=== PATIENT | female | born 1960 | race Caucasian/White ===

== ENCOUNTER → 2016-11-24 | Outpatient (CLI) | payer OTHER ==
[~2016-11-24] MED LIST: CITA20TA9 PO; ESTR1CRE PV; MULTTAB58 PO; OPTIRAY 320 IV PRN; OYST500T47 PO; ROPI0.25 PO; TRAM-10 PO; TYLER650 PO
--- NOTE | 2016-11-24 11:28 | DIAGNOSTIC IMAGING REPORT ---
CT OF THE ABDOMEN AND PELVIS WITH CONTRAST CLINICAL HISTORY: Chronic right lower quadrant abdominal pain. COMPARISON STUDY: Pelvic ultrasound November 20, 2015. TECHNIQUE: Following IV administration of 94 mL of Optiray-320, axial images of the abdomen and pelvis were obtained from the lung bases to the proximal femurs. Images were reviewed in the axial, sagittal, and coronal planes. IV contrast was administered without complication. Oral contrast was administered. CT DOSE: 816.16 mGycm FINDINGS: Lung bases are clear. The liver, spleen, adrenal glands, kidneys and pancreas are unremarkable. There is no peripancreatic infiltration. There is no pancreatic ductal dilatation. Slight dilatation of the common bile duct is likely due to prior cholecystectomy. There is a small 8 mm splenic artery aneurysm. The caliber and wall thickness of small and large bowel are normal. The appendix is normal. There is colonic diverticulosis without evidence for acute diverticulitis. There is no ascites. There is no lymphadenopathy. No suspicious osseous lesions are present. There are findings consistent with an L5-S1 discectomy and bilateral pedicle screw fusion. IMPRESSION: 1. No acute process within the abdomen or pelvis. Normal appendix. 2. Colonic diverticulosis without evidence for acute diverticulitis. 3. Tiny 8 mm splenic artery aneurysm. 4. Slight dilatation of the common bile duct. This is likely related to prior cholecystectomy but could be correlated with obstructive liver function tests. Electronically signed by: Jaciel Hull M.D. 11/24/2016 11:26 AM Dictated Date/Time: 11/24/2016 11:20 AM
== END | disposition home or self-care (01) ==
LOC: C.CTS 08:26
PROVIDERS: ATTEND Internal Medicine
DX: R10.9 Unspecified abdominal pain (principal); K57.30 Diverticulosis of large intestine without perforation or abscess without bleeding

== ENCOUNTER → 2017-08-06 | Outpatient (CLI) | payer OTHER ==
[~2017-08-06] MED LIST changes: -OPTIRAY 320 IV PRN
[2017-08-06 17:38] LABS: BASO % 0.5 %; BASO ABS # 0.03 K/uL (0-0.2); COMPLETE YES; EOS % 0.7 %; HEMATOCRIT 41.2 % (37-47); IG% 0.2 %; LYMPH ABS # 1.41 K/uL (1.2-3.4); MEAN CELL VOLUME 90.9 fL (80-100); MEAN PLATELET VOLUME 9.1 fL (7.4-10.4); MONO % 7.8 %; NEUT % 65.8 %; PLATELET COUNT 323 K/uL (130-400); RED BLOOD COUNT 4.53 M/uL (4.2-5.4); WHITE BLOOD COUNT 5.64 K/uL (4.8-10.8)
[2017-08-06 18:10] LABS: LYME DISEASE AB IGG NEG (NEG); LYME DISEASE AB IGM NEG (NEG)
[2017-08-06 18:15] LABS: ALT/SGPT 19 U/L (12-78); BLOOD UREA NITROGEN 16 mg/dl (7-18); BUN/CREATININE RATIO 18.3 (10-20); CARBON DIOXIDE 29 mmol/L (21-32); CHLORIDE 103 mmol/L (98-107); CREATININE 0.86 mg/dl (0.60-1.20); GLUCOSE 101 mg/dl (70-99); MAGNESIUM 2.4 mg/dl (1.8-2.4); SODIUM 137 mmol/L (136-145)
[2017-08-06 18:24] LABS: ALB/GLOB RATIO 1.2 (0.9-2); ALKALINE PHOSPHATASE 106 U/L (45-117); AST/SGOT 13 U/L (15-37); THYROID STIMULATING HORMONE 0.456 uIu/ml (0.300-4.500)
== END | disposition home or self-care (01) ==
LOC: C.LABPBG 12:12
PROVIDERS: ATTEND Internal Medicine
DX: R00.2 Palpitations (principal); I95.1 Orthostatic hypotension; R07.89 Other chest pain; R53.1 Weakness

== ENCOUNTER → 2017-08-13 | Outpatient (CLI) | payer OTHER ==
--- NOTE | 2017-08-13 08:13 | DIAGNOSTIC IMAGING REPORT ---
BRAIN WITHOUT CONTRAST HISTORY: 56 years-old Female R41.3 Memory loss, short [id number] associated dizziness and lightheadedness COMPARISON: None available TECHNIQUE: Multiplanar multisequence MRI of the brain was obtained without contrast FINDINGS: There is no restricted diffusion. The midline structures including the corpus callosum, brainstem, optic chiasm, infundibulum and pineal gland are unremarkable. The sella appears partially empty. Mild degenerative changes of the imaged cervical spine. No cerebellar tonsillar herniation. No acute intracranial hemorrhage, midline shift, abnormal extra-axial collections, hydrocephalus or intracranial mass. The major flow voids at the level of the skull base are patent. Orbits are symmetric. Mastoid air cells and paranasal sinuses are generally clear. Left ni bullosa. Scalp, calvarium and soft tissues are unremarkable. IMPRESSION: No acute intracranial abnormality. The above report was generated using voice recognition software. It may contain grammatical, syntax or spelling errors. Electronically signed by: Eliseo Baca M.D. 08/13/2017 8:11 AM Dictated Date/Time: 08/13/2017 8:06 AM
== END | disposition home or self-care (01) ==
LOC: C.MRI 07:23
PROVIDERS: ATTEND Internal Medicine
DX: R41.3 Other amnesia (principal)

== ENCOUNTER 2017-09-24 13:45 | Emergency (ER) | payer OTHER ==
[~2017-09-24] VITALS: Ht 172.7 cm; Wt 83.2 kg
[2017-09-24 14:03] VITALS: TEMP 37.3; Ht 172.7 cm; Wt 83.2 kg
[2017-09-24] MEDS ORDERED: PRMVC PV (16:12)
[2017-09-24] MEDS ORDERED: BUPR-79 PO (16:12)
[2017-09-24] MEDS ORDERED: SODIUM CHLORIDE 0.9% 1000ML 2,000 ML IV STA (16:12)
[2017-09-24 16:30] VITALS: O2SAT 99
[2017-09-24 16:57] LABS: BASO % 0.2 %; BASO ABS # 0.02 K/uL (0-0.2); EOS % 0.8 %; EOS ABS # 0.08 K/uL (0-0.5); HEMATOCRIT 38.3 % (37-47); HEMOGLOBIN 12.5 g/dL (12.0-16.0); IG# 0.03 K/uL (0.00-0.02); LYMPH % 15.7 %; LYMPH ABS # 1.65 K/uL (1.2-3.4); MEAN CELL VOLUME 89.5 fL (80-100); MEAN CORPUSCULAR HEMOGLOBIN 29.2 pg (25-34); MEAN CORPUSCULAR HGB CONC 32.6 g/dl (32-36); MEAN PLATELET VOLUME 8.7 fL (7.4-10.4); MONO % 8.4 %; MONO ABS # 0.88 K/uL (0.11-0.59); NEUT % 74.6 %; NEUT ABS # 7.83 K/uL (1.4-6.5); PLATELET COUNT 266 K/uL (130-400); RED CELL DISTRIBUTION WIDTH SD 41.9 fL (36.4-46.3); WHITE BLOOD COUNT 10.49 K/uL (4.8-10.8)
[2017-09-24 17:10] LABS: CALCIUM 8.8 mg/dl (8.5-10.1); CREATININE 0.78 mg/dl (0.60-1.20); POTASSIUM 3.8 mmol/L (3.5-5.1)
--- NOTE | 2017-09-24 17:13 | DIAGNOSTIC IMAGING REPORT ---
CHEST ONE VIEW PORTABLE CLINICAL HISTORY: Atypical chest pain COMPARISON STUDY: 09/10/2014 FINDINGS: The cardiac and mediastinal contours are normal. There is no evidence of focal pulmonary consolidation. There is no evidence of failure. No pleural effusions are visualized.[ IMPRESSION: No active disease in the chest. Electronically signed by: Jeff Duke M.D. 09/24/2017 5:12 PM Dictated Date/Time: 09/24/2017 5:12 PM
[2017-09-24] MEDS ORDERED: OFLOXACIN 0.3% OP SOLN 5 ML BTL OP STA (17:19)
[2017-09-24] MEDS ORDERED: KETOROLAC TROMETHAMINE 30 MG/ML VIAL IV STA (17:23)
[2017-09-24] MEDS ORDERED: AZITHROMYCIN 250 MG TAB PO ONE (17:30)
[2017-09-24] MEDS ORDERED: AZIT250T PO (18:12)
[2017-09-24] MEDS ORDERED: OFLO0.3D4 OT (18:13)
[2017-09-24] MEDS ORDERED: IBUP-1451 PO (18:17)
--- NOTE | 2017-09-24 18:17 | EMERGENCY ROOM VISIT NOTE ---
History Report prepared by Juan José: Sergio Nova Under the Supervision of: Dr. Rony Caballero M.D. First contact with patient: 15:46 Chief Complaint: RASH Stated Complaint: SHINGLES, EARDRUM, PNEUMONIA History of Present Illness The patient is a 57 year old female who presents to the Emergency Room with complaints of constant left ear pain beginning a few days ago. She also complains of cough, nasal congestion, nausea, and shortness of breath. The patient was seen by her PCP this morning for similar symptoms. She was found to have a "blister-like thing" in her left ear by her PCP, which eventually burst and has been draining ever since. She had a chest x-ray with her PCP as well, but has not heard the results. The patient states that her PCP was concerned that her ear pain may be related to shingles. She denies body aches, vomiting, diarrhea, or fevers. She has an appointment with ENT this week. Source of History: patient Onset: A few days ago Position: ear (left) Timing: constant Associated Symptoms: + cough, + SOB, + nausea, No fevers, No vomiting, No diarrhea Note: The patient denies body aches. She also complains of nasal congestion. Review of Systems See HPI for pertinent positives and negatives. A total of ten systems were reviewed and were otherwise negative. Past Medical & Surgical Medical Problems: (1) Cervical stenosis of spinal canal (2) Hematoma (3) Hyperlipidemia Family History No pertinent family history stated. Social History Smoking Status: Never Smoker Housing Status: lives with family Current/Historical Medications Scheduled Azithromycin (Zithromax), 250 MG PO DAILY Bupropion (Wellbutrin Sr), 150 MG PO BID Citalopram Hydrobromide (Celexa), 1.5 TAB PO DAILY Estrogens, Conjugated (Premarin), 0.5 GM PV 2XWK Multiple Vitamin (Multivitamin), 1 TAB PO HS Ofloxacin (Otic) (Floxin Otic), 5 DROPS OT BID Oyster Shell (Calcium), 1,000 MG PO DAILY Ropinirole (Requip), 2 TABS PO DAILY Scheduled PRN Acetaminophen (Tylenol Arthitis Ext Rel), 650-1,300 MG PO BID PRN for Pain Ibuprofen Tab (Motrin), 800 MG PO Q8H PRN for Pain Allergies Coded Allergies: Latex (Verified Allergy, Severe, severe red,itchy rash inmouth & down throat (see comments), 09/24/17) PT GETS SEVERE RED ITCHY RASH AND SORES IN MOUTH AND DOWN THROAT EVEN IF LATEX GLOVES TOUCH FOOD DURING PREPARATION (RESTAURANT) Adhesives (Verified Allergy, Unknown, RASH, 09/24/17) Meperidine (Verified Allergy, Unknown, PHSYCHOSIS, 09/24/17) Prochlorperazine (Verified Allergy, Unknown, "EYES ROLL BACK, STIFF NECK" , 09/24/17) Oxycodone (Verified Adverse Reaction, Unknown, RASH AND ITCHING, 09/24/17) Physical Exam Vital Signs Date Time Temp Pulse Resp B/P (MAP) Pulse Ox O2 Delivery O2 Flow Rate FiO2 09/24/17 19:01 94 16 145/86 100 Room Air 09/24/17 18:05 92 16 145/86 99 Room Air 09/24/17 16:40 92 09/24/17 16:30 99 Room Air 09/24/17 16:30 99 16 143/82 98 Room Air 09/24/17 14:03 37.3 137 18 137/77 98 Room Air Physical Exam GENERAL: Awake, alert, well-appearing, in no distress HENT: Normocephalic, atraumatic. Oropharynx with dry MM and otherwise unremarkable. Mild injection to the left TM and EAC with vesicles present within the EAC and on the TM. EYES: Normal conjunctiva. Sclera non-icteric. NECK: Supple. No nuchal rigidity. FROM. No JVD. RESPIRATORY: Clear to auscultation. CARDIAC: Regular rate, normal rhythm. Extremities warm and well perfused. Pulses equal. ABDOMEN: Soft, non-distended. No tenderness to palpation. No rebound or guarding. No masses. RECTAL: Deferred. MUSCULOSKELETAL: Chest examination reveals no tenderness. The back is symmetrical on inspection without obvious abnormality. There is no CVA tenderness to palpation. No joint edema. LOWER EXTREMITIES: Calves are equal size bilaterally and non-tender. No edema. No discoloration. NEURO: Normal sensorium. No sensory or motor deficits noted. SKIN: No rash or jaundice noted. Medical Decision & Procedures ER Provider Diagnostic Interpretation: Radiology results as stated below per my review and radiologist interpretation: CHEST ONE VIEW PORTABLE FINDINGS: The cardiac and mediastinal contours are normal. There is no evidence of focal pulmonary consolidation. There is no evidence of failure. No pleural effusions are visualized.[ IMPRESSION: No active disease in the chest. Electronically signed by: Jeff Duke M.D. 09/24/2017 5:12 PM Laboratory Results 09/24/17 16:35 Red Blood Count 4.28, Mean Corpuscular Volume 89.5, Mean Corpuscular Hemoglobin 29.2, Mean Corpuscular Hemoglobin Concent 32.6, Mean Platelet Volume 8.7, Neutrophils (%) (Auto) 74.6, Lymphocytes (%) (Auto) 15.7, Monocytes (%) (Auto) 8.4, Eosinophils (%) (Auto) 0.8, Basophils (%) (Auto) 0.2, Neutrophils # (Auto) 7.83, Lymphocytes # (Auto) 1.65, Monocytes # (Auto) 0.88, Eosinophils # (Auto) 0.08, Basophils # (Auto) 0.02 09/24/17 16:35 Test 09/24/17 16:35 White Blood Count 10.49 K/uL (4.8-10.8) Red Blood Count 4.28 M/uL (4.2-5.4) Hemoglobin 12.5 g/dL (12.0-16.0) Hematocrit 38.3 % (37-47) Mean Corpuscular Volume 89.5 fL (80-100) Mean Corpuscular Hemoglobin 29.2 pg (25-34) Mean Corpuscular Hemoglobin Concent 32.6 g/dl (32-36) Platelet Count 266 K/uL (130-400) Mean Platelet Volume 8.7 fL (7.4-10.4) Neutrophils (%) (Auto) 74.6 % Lymphocytes (%) (Auto) 15.7 % Monocytes (%) (Auto) 8.4 % Eosinophils (%) (Auto) 0.8 % Basophils (%) (Auto) 0.2 % Neutrophils # (Auto) 7.83 K/uL (1.4-6.5) Lymphocytes # (Auto) 1.65 K/uL (1.2-3.4) Monocytes # (Auto) 0.88 K/uL (0.11-0.59) Eosinophils # (Auto) 0.08 K/uL (0-0.5) Basophils # (Auto) 0.02 K/uL (0-0.2) RDW Standard Deviation 41.9 fL (36.4-46.3) RDW Coefficient of Variation 13.0 % (11.5-14.5) Immature Granulocyte % (Auto) 0.3 % Immature Granulocyte # (Auto) 0.03 K/uL (0.00-0.02) Anion Gap 4.0 mmol/L (3-11) Est Creatinine Clear Calc Drug Dose 88.9 ml/min Estimated GFR () 97.1 Estimated GFR (Non- 83.8 BUN/Creatinine Ratio 15.2 (10-20) Calcium Level 8.8 mg/dl (8.5-10.1) Laboratory results reviewed by me Medications Administered Medications (Trade) Dose Ordered Sig/Jorge Route Start Time Stop Time Status Last Admin Dose Admin Sodium Chloride 2,000 ml @ 999 mls/hr Q2H1M STAT IV 09/24/17 16:12 09/24/17 18:12 DC 09/24/17 16:42 999 MLS/HR Azithromycin (Zithromax Tab) 500 mg NOW ONCE PO 09/24/17 17:30 09/24/17 17:31 DC 09/24/17 18:03 500 MG Valacyclovir HCl (Valtrex Tab) 500 mg NOW ONCE PO 09/24/17 17:30 09/24/17 17:31 DC 09/24/17 18:04 500 MG Ketorolac Tromethamine (Toradol Inj) 15 mg NOW STAT IV 09/24/17 17:23 09/24/17 17:25 DC 09/24/17 18:04 15 MG Prednisone (PredniSONE TAB) 60 mg NOW STAT PO 09/24/17 17:51 09/24/17 17:52 DC 09/24/17 18:04 60 MG Sodium Chloride ([place] Nasal Magnolia) 2 sprays NOW ONCE NA 09/24/17 18:45 09/24/17 18:46 DC 09/24/17 19:01 2 SPRAYS Valacyclovir HCl (Valtrex Tab) 500 mg NOW ONCE PO 09/24/17 19:00 09/24/17 19:01 DC 09/24/17 19:05 500 MG ECG Indication: SOB/dyspnea Rate (beats per minute): 92 Rhythm: normal sinus Findings: no acute ischemic change, other (Normal axis. ) ED Course 1551: The patient was evaluated in room C7. A complete history and physical exam was performed. 1849: I reevaluated the patient. Discussed results and discharge instructions: she verbalized understanding and agreement. The patient is ready for discharge. Medical Decision I reviewed the patient's past medical history, medications, and the nursing notes as described above. The patient's presentation and history were concerning for pneumonia, bronchitis , otitis media, otitis externa, zoster, dehydration, and electrolyte abnormalities. The patient is a 57-year-old woman who presents emergency Department with left ear pain and otorrhea after being seen by her doctor earlier today and diagnosed with zoster oticus and was given a prescription for prednisone and Valtrex however the patient began to have otorrhea when getting her outpatient chest x-ray and so was told to go to the emergency department per hpi. On arrival, the patient is uncomfortable but no acute distress, afebrile, HR 130s but vital signs otherwise stable. On exam the patient has several vesicles in the EAC as well as on the TM which could be consistent with zoster but also possibly OM/OE. Chest x-ray negative. Given the patient's productive cough in the setting of her otic symptoms will treat with oral azithromycin which will treat both bronchitis and OM. Additionally will give topical ofloxacin with earwick for possible OE in addition to the patient's current prescriptions for Valtrex and prednisone given the patient does have mild tenderness along the facial nerve distribution. She already has ENT scheduled for . Findings and plan for follow-up reviewed with patient. Patient agreeable and d/c 'd per discharge instructions. Medication Reconcilliation Current Medication List: was personally reviewed by me Blood Pressure Screening Patient's blood pressure: Elevated blood pressure Blood pressure disposition: Elevated BP felt to be situational Impression Primary Impression: Herpes zoster otitis externa Additional Impression: Acute bronchitis Scribe Attestation The scribe's documentation has been prepared under my direction and personally reviewed by me in its entirety. I confirm that the note above accurately reflects all work, treatment, procedures, and medical decision making performed by me. Departure Information Dispostion Home / Self-Care Prescriptions Ibuprofen Tab (MOTRIN) 800 Mg Tab 800 MG PO Q8H Y for Pain, #21 TAB Prov: Rony Caballero M.D. 09/24/17 Ofloxacin (Otic) (FLOXIN OTIC) 0.3 % Moses 5 DROPS OT BID for 7 Days, #1 BTL Prov: Rony Caballero M.D. 09/24/17 Azithromycin (Zithromax) 250 Mg Tab 250 MG PO DAILY, #4 TAB Prov: Rony Caballero M.D. 09/24/17 Referrals Brandon Arreaga M.D. (PCP) Patient Instructions Bronchitis Acute, ED Otitis Externa, ED Otitis Media Acute Adult, My [facility], Shingles Herpes Zoster Additional Instructions Please follow up with your primary care physician in the next 1-3 days as well as with ENT as scheduled on for re-evaluation. You likely have a bronchitis as well as an inner and external ear infection that may be related to herpes but could also be bacterial. Otherwise, your exam, chest xray, and lab results did not show signs of an emergent condition at this time. Take your prednisone and valtrex as prescribed by your doctor. Azithromycin as directed. Acetaminophen or Ibuprofen for pain and fevers as needed. Use your albuterol inhaler 2 puffs every 4 hours for the next 48 hours and then as needed thereafter. Return to the emergency department for worsening symptoms as described in the accompanying instructions. Problem Qualifiers
[2017-09-24] MEDS ORDERED: SODIUM CHLORIDE 0.65% NA SOLN 45 ML (OCEAN) ONE (18:45)
[2017-09-24 19:01] VITALS: BP 145/86; PULSE 94; O2SAT 100
== END 2017-09-24 19:05 | disposition home or self-care (01) ==
LOC: C.EDB 13:46 → C.EDC 19:05
DX: B02.8 Zoster with other complications (principal); H60.92 Unspecified otitis externa, left ear; J20.9 Acute bronchitis, unspecified; E78.5 Hyperlipidemia, unspecified; Z79.899 Other long term (current) drug therapy

== ENCOUNTER → 2017-10-29 | Outpatient (CLI) | payer OTHER ==
[~2017-10-29] MED LIST changes: +AZIT250T PO; +BUPR-79 PO; -ESTR1CRE PV; +IBUP-1451 PO; +OFLO0.3D4 OT; +PRMVC PV; -TRAM-10 PO
--- NOTE | 2017-10-29 12:21 | DIAGNOSTIC IMAGING REPORT ---
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 Following the IV administration of 8 mL of Gadavist contrast, additional enhanced images were obtained. FINDINGS: Sagittal T1, axial diffusion, proton density and T2 weighted axial, coronal FLAIR, and pre and post axial T1-weighted images were acquired. These were supplemented with post gadolinium coronal T1 weighted images. No intra or extra-axial mass lesions are visualized. Axial diffusion-weighted images reveal no evidence of acute or subacute infarction. There is no evidence of ventricular dilatation. Proton density T2-weighted and FLAIR images reveal no significant intraparenchymal signal abnormalities. There are no abnormal flow voids. There is no evidence of pathologic enhancement. No cerebellopontine angle masses are visualized. The 7th and 8th nerve complexes appear normal bilaterally. There is soft tissue and fluid within the left mastoid which demonstrates post gadolinium enhancement. This statistically is inflammatory. This was not present in July 2017. IMPRESSION: 1. Interval development of extensive signal abnormalities within the left mastoid, likely inflammatory. Clinical follow-up is advocated 2. Otherwise normal MRI of the brain Electronically signed by: Jeff Duke M.D. 10/29/2017 12:20 PM Dictated Date/Time: 10/29/2017 12:14 PM
== END | disposition home or self-care (01) ==
LOC: C.MRI 11:14
PROVIDERS: ATTEND Physician Assistant
DX: H90.72 Mixed conductive and sensorineural hearing loss, unilateral, left ear, with unrestricted hearing on the contralateral side (principal)

== ENCOUNTER 2020-03-22 12:38 | Observation (INO) ==
[2020-03-22 12:59] LABS: Basophils # (auto) 0.02 K/uL (0-0.2); Basophils % (auto) 0.3 %; Eosinophils # (auto) 0.07 K/uL (0-0.5); Eosinophils % (auto) 1.1 %; Hematocrit (blood only) 40.9 % (37-47); Hemoglobin 13.1 g/dL (12.0-16.0); Immature Granulocytes # (auto) 0.02 K/uL (0.00-0.02); Immature Granulocytes % (auto) 0.3 %; Lymphocytes # (auto) 1.64 K/uL (1.2-3.4); Lymphocytes % (auto) 24.7 %; Mean Corpuscular Hemoglobin 29.2 pg (25-34); Mean Corpuscular Volume 91.1 fL (80-100); Monocytes # (auto) 0.45 K/uL (0.11-0.59); Monocytes % (auto) 6.8 %; Neutrophils # (auto) 4.44 K/uL (1.4-6.5); Neutrophils % (auto) 66.8 %; Platelet Count 342 K/uL (130-400); RDW Coefficient of Variation 12.6 % (11.5-14.5); RDW Standard Deviation 42.2 fL (36.4-46.3); Red Blood Count 4.49 M/uL (4.2-5.4); White Blood Count 6.64 K/uL (4.8-10.8)
--- NOTE | 2020-03-22 13:04 | XRay Report ---
XR chest 1V portable CLINICAL HISTORY: Chest Pain pain COMPARISON STUDY: 03/09/2020 FINDINGS: The bones soft tissues and hemidiaphragms are normal. The cardiomediastinal silhouette is n ormal. The lungs are clear. The pulmonary vasculature is normal. IMPRESSION: Negative chest. ACT 112: Negative or not required by law. The above report was generated using voice recognition software. It may contain grammatical, syntax or spelling errors. Electronically signed by: Jonny Zepeda M.D. 03/22/2020 1:02 PM
[2020-03-22 13:13] LABS: Partial Thromboplastin Ratio 1.1; Partial Thromboplastin Time 30.1 Seconds (21.0-31.0); Prothrombin Time 10.9 Seconds (9.0-12.0)
[2020-03-22 13:16] LABS: Alanine Aminotransferase 15 U/L (12-78); Albumin Level 3.7 gm/dl (3.4-5.0); Aspartate Aminotransferase 12 U/L (15-37); Blood Urea Nitrogen 8 mg/dl (7-18); Calcium 8.9 mg/dl (8.5-10.1); Carbon Dioxide 25 mmol/L (21-32); Chloride 106 mmol/L (98-107); Creatinine Clr Calc Pharmacy 78.7 ml/min; Est GFR (African American) 86.3; Est GFR (Non-African American) 74.5; Glucose 93 mg/dl (70-99); Potassium 3.9 mmol/L (3.5-5.1); Sodium 140 mmol/L (136-145)
--- NOTE | 2020-03-22 13:17 | Emergency Department Note ---
History of Present Illness General Chief Complaint: Chest Pain Time Seen by Provider: 03/22/20 13:12 Source: patient Mode of arrival: ambulatory Limitations: no limitations History of Present Illness Provider Complaint: chest pain Maximum Pain Intensity: 5 This is a 59-year-old female who presents to the ED with a chief complaint of left-sided chest discomfort. She states that it radiates from the costochondral region just inferior and medial to her left breast and radiates under her left breast. The patient states that she had similar symptoms a couple weeks ago and it has been coming and going since that time. It seems a little worse with breathing. She states that it feels a little better if she lifts her left breast up. The patient states the pain radiates into her shoulder blade area. It started again last night and then was there this morning. Her PCP sent her in for evaluation. She has no shortness of breath. No fevers or recent illness. No nausea or vomiting. Home Medications Home Medications Medication Instructions Recorded Confirmed Type acetaminophen [Tylenol Arthritis 1,300 mg PO HS 08/12/18 03/22/20 History Pain] bupropion HCl 150 mg tablet,12 hr 150 mg PO BID #180 ea 01/14/20 03/22/20 Rx sustained-release citalopram 20 mg tablet See Rx Instructions PO QAM #135 tab 02/06/20 03/22/20 Rx clindamycin phosphate 1 appln TOP QAM 03/09/20 03/22/20 History ropinirole 0.5 mg PO HS 03/09/20 03/22/20 History Allergies Allergy/AdvReac Type Severity Reaction Status Date / Time latex Allergy Severe severe Verified 03/22/20 10:55 red,itchy rash inmouth & down throat (see comments) adhesive Allergy Unknown RASH Verified 03/22/20 10:55 meperidine Allergy Unknown PHSYCHOSIS Verified 03/22/20 10:55 prochlorperazine Allergy Unknown "EYES ROLL Verified 03/22/20 10:55 BACK, STIFF NECK" oxycodone AdvReac Unknown RASH AND Verified 03/22/20 10:55 ITCHING Past Med/Surg History Medical History Arthritis (Acute) Cervical pain (neck) Chronic back pain Chronic pain syndrome (Acute) Congenital dislocation of hip, bilateral (Acute) Cystocele, midline (Acute) DDD (degenerative disc disease), cervical (Acute) DDD (degenerative disc disease), lumbar (Acute) Degenerative disc disease Depression Fibromyalgia Hearing deficit Insomnia (Acute) Orthostatic hypotension (Acute) Osteoarthritis Pancreatitis Restless leg syndrome Right-sided headache Sensorineural hearing loss (SNHL) of both ears (Acute) Spinal stenosis Surgical History History of bilateral tubal ligation History of cholecystectomy History of colonoscopy History of dacryocystorhinostomy History of dilatation and curettage x3 History of esophagogastroduodenoscopy (EGD) History of lumbar spinal fusion hardware in place History of tonsillectomy and adenoidectomy History of tooth extraction wisdom teeth History of total abdominal hysterectomy and bilateral salpingo-oophorectomy History of umbilical hernia repair Hx of oral surgery Status post cervical spinal fusion c6-c7; hardware in place--normal ROM Family History Grandmother (Maternal) Family history of diabetes mellitus Other Family history of colonic polyps Social History Smoking Status: Never smoker Second Hand Exposure: No; Hx Alcohol Use: No Hx Substance Use: No Preferred Language: [place] Communication Ability: Effective Visual Impairment: No Limitations Hearing Ability: Normal Global Security Architect Required: No Beliefs That Will Affect Care: None marital status: Current Living Situation: Spouse Feels Safe at Home: Yes Diet Comment: Mediterranean diet reviewed. caffeine: Yes during the past year weight has: remained stable Dental Care, Regularly: Yes Physical Activity Frequency: 1-2 Times per Week Review of Systems A total of 10 systems reviewed and were otherwise negative Physical Exam Vital Signs Vital Signs - 24 hr 03/22/20 12:45 03/22/20 12:53 03/22/20 12:55 Temperature Temperature Source Pulse Rate 84 83 Pulse Rate from SpO2 Sensor 84 82 Pulse Rhythm Pulse Strength Respiratory Rate 7 L 15 Respiratory Effort / Characteristics Respiratory Depth Blood Pressure 157/87 H Blood Pressure Mean 112 Pulse Oximetry 100 100 100 Oxygen Delivery Method Room Air Room Air Sepsis Recent Fever Within 48 Hours Sepsis New/Unexplained Change in Mental Status Sepsis Action Taken by Nursing 03/22/20 12:56 03/22/20 13:00 03/22/20 13:15 Temperature 37.2 C Temperature Source Oral Pulse Rate 89 86 78 Pulse Rate from SpO2 Sensor 86 78 Pulse Rhythm Regular Pulse Strength Normal Respiratory Rate 23 14 13 Respiratory Effort / Characteristics Non-Labored Respiratory Depth Normal Blood Pressure 157/87 H 149/88 H Blood Pressure Mean 110 98 Pulse Oximetry 100 99 98 Oxygen Delivery Method Room Air Sepsis Recent Fever Within 48 Hours No Sepsis New/Unexplained Change in Mental Status No Sepsis Action Taken by Nursing No Action Required 03/22/20 13:30 Temperature Temperature Source Pulse Rate Pulse Rate from SpO2 Sensor 77 Pulse Rhythm Pulse Strength Respiratory Rate 31 H Respiratory Effort / Characteristics Respiratory Depth Blood Pressure 128/81 Blood Pressure Mean 96 Pulse Oximetry 98 Oxygen Delivery Method Sepsis Recent Fever Within 48 Hours Sepsis New/Unexplained Change in Mental Status Sepsis Action Taken by Nursing CONSTITUTIONAL/VITAL SIGNS: Reviewed / noted above. GENERAL: Non-toxic in appearance. INTEGUMENTARY: Warm, dry, and [place]. HEAD: Normocephalic. EYES: without scleral icterus or trauma. ENT/OROPHARYNX: clear and moist. LYMPHADENOPATHY/NECK: Is supple without lymphadenopathy or meningismus. RESPIRATORY: Lungs clear and equal. CARDIOVASCULAR: Regular rate and rhythm. GI/ABDOMEN: Soft and nontender. No organomegaly or pulsatile mass. No rebound or guarding. Normal bowel sounds. EXTREMITIES: Warm and well perfused. BACK: No CVA tenderness. NEUROLOGICAL: Intact without focal deficits. PSYCHIATRIC: normal affect. MUSCULOSKELETAL: Normally developed with good muscle tone. TRIAGE NURSING DOCUMENTATION REVIEWED. Medical Decision Making Differential Diagnosis The differential that was considered includes acute myocardial infarction, acute coronary syndrome, myocarditis, pericarditis, pericardial effusions /tamponade, esophageal perforation, thoracic aortic dissection, pulmonary embolism, pneumo serena, pneumothorax, pancreatitis, shingles, acute cholecystitis, perforated abdominal viscus. Medical Records Attestation: I reviewed the patient's medical records. Home Medications Current Medication List: was personally reviewed by me Laboratory Data Attestation: I reviewed the patient's lab results. Result diagrams: 03/22/20 12:13 03/22/20 12:13 Labs: Lab Results 03/22/20 03/22/20 03/22/20 Range/Units 12:13 12:13 12:13 WBC 6.64 (4.8-10.8) K/uL RBC 4.49 (4.2-5.4) M/uL Hgb 13.1 (12.0-16.0) g/dL Hct 40.9 (37-47) % MCV 91.1 (80-100) fL MCH 29.2 (25-34) pg MCHC 32.0 (32-36) g/dL RDW Std Deviation 42.2 (36.4-46.3) fL RDW Coeff of Madelaine 12.6 (11.5-14.5) % Plt Count 342 (130-400) K/uL MPV 9.0 (7.4-10.4) fL Immature Gran % (Auto) 0.3 % Neut % (Auto) 66.8 % Lymph % (Auto) 24.7 % [place] % (Auto) 6.8 % Eos % (Auto) 1.1 % Baso % (Auto) 0.3 % Neut # (Auto) 4.44 (1.4-6.5) K/uL Lymph # (Auto) 1.64 (1.2-3.4) K/uL [place] # (Auto) 0.45 (0.11-0.59) K/uL Eos # (Auto) 0.07 (0-0.5) K/uL Baso # (Auto) 0.02 (0-0.2) K/uL Immature Gran # (Auto) 0.02 (0.00-0.02) K/uL PT 10.9 (9.0-12.0) Seconds INR 1.0 (0.9-1.1) APTT 30.1 (21.0-31.0) Seconds PTT Ratio 1.1 Sodium 140 (136-145) mmol/L Potassium 3.9 (3.5-5.1) mmol/L Chloride 106 (98-107) mmol/L Carbon Dioxide 25 (21-32) mmol/L Anion Gap 8.0 (3-11) BUN 8 (7-18) mg/dl Creatinine 0.85 (0.6-1.2) mg/dl Est Cr Clr Drug Dosing 78.7 ml/min Est GFR ( Amer) 86.3 Est GFR (Non-Af Amer) 74.5 BUN/Creatinine Ratio 9.0 L (10-20) Glucose 93 (70-99) mg/dl Calcium 8.9 (8.5-10.1) mg/dl Total Bilirubin 0.3 (0.2-1) mg/dl AST 12 L (15-37) U/L ALT 15 (12-78) U/L Alkaline Phosphatase 100 (45-117) U/L Troponin I < 0.015 (0-0.045) ng/ml Total Protein 7.2 (6.4-8.2) gm/dl Albumin 3.7 (3.4-5.0) gm/dl Globulin 3.5 (2.5-4.0) gm/dl Albumin/Globulin Ratio 1.1 (0.9-2) Imaging Data Chest x-ray: Radiologist's impression: Chest x-ray: No acute disease ECG Data Attestation: I personally reviewed and interpreted this ECG as follows: Indication: chest pain Rate (beats per minute): 82 Rhythm: normal sinus Findings: no PVC and no ST elevation Blood Pressure Blood Pressure Findings: Normal blood pressure MDM Narrative The patient presents with an atypical type chest pain in the left chest. She states that it has been intermittent for couple weeks. The patient's twelve- lead EKG today shows a normal sinus rhythm at a rate of 82. CBC and chemistry panel was unremarkable. Chest x-ray did not show acute process and a troponin was negative. The patient does have some point tenderness in the area of the left costochondral joint just medial and inferior to the breast. This could be a costochondritis. The patient was told the results. She is felt to be stable for discharge. Impression & Plan Atypical chest pain, Acute costochondritis Discharge Plan Visit Data Chief Complaint: Chest Pain ED Provider: Raghu Stauffer Discharge Problem: Atypical chest pain, Acute costochondritis Patient Disposition: Home - Self-Care Condition: Good Discharge Instructions Activity Restrictions/Additional Instructions: Your test results today did not show any concerning abnormalities. Your s ymptoms could be related to costochondritis. Take ibuprofen as needed for pain. Forms Stand Alone Forms: [facility], Virtual Emergency Department, Important Visit Information Prescriptions Prescriptions: No Action bupropion HCl 150 mg tablet sustained-release 12 hr 150 mg PO BID Qty: 180 RF: 3 citalopram 20 mg tablet See Rx Instructions PO QAM Qty: 135 RF: 3 acetaminophen [Tylenol Arthritis Pain] 650 mg Tablet Extended Release 1,300 mg PO HS RF: 0 ropinirole 0.25 mg tablet 0.5 mg PO HS RF: 0 clindamycin phosphate 1 % solution 1 appln TOP QAM RF: 0 Referrals Referrals: Brandon Arreaga MD [Primary Care Provider] -
[2020-03-22 13:21] LABS: Albumin Globulin Ratio 1.1 (0.9-2); Alkaline Phosphatase 100 U/L (45-117); Bilirubin,Total 0.3 mg/dl (0.2-1); Globulin 3.5 gm/dl (2.5-4.0); Total Protein 7.2 gm/dl (6.4-8.2); Troponin I < 0.015 ng/ml (0-0.045)
--- NOTE | 2020-03-22 16:21 | History & Physical Report ---
Date of Service March 22, 2020 Assessment & Plan (1) Atypical chest pain: Chest pain atypical in nature, but with strong family history of CAD. Does not seem musculoskeletal in nature, but is possible. Could also be GI related. Chest x-ray is normal. D-dimer was negative when she had the exact same symptoms began 2 weeks ago and I do not suspect PE or DVT. -Admit on observation to telemetry for cardiac monitoring given heart palpitations -Serial troponin -Resting echocardiogram -If troponin serially negative overnight and resting echocardiogram without significant abnormality, recommend stress echocardiogram in the morning. -Daily ECG (2) Headache: Chronic daily headache for the last 3 months Does have a history of cervical spine issues -Recommend PCP follow-up as an outpatient Tylenol as needed (3) Depression: Stable -Continue home citalopram and bupropion (4) Restless legs syndrome: Stable -Continue home ropinirole (5) Orthostatic hypotension: Patient describes orthostatic symptoms and has a diagnosis of orthostatic hypotension in the chart -Given recent worsening of lightheadedness, will check orthostatic vital signs here and give 1 L normal saline (6) Hyperlipidemia: Listed as a diagnosis in the chart, but she is not on medication for this -Check fasting lipid panel in the morning Start statin if indicated (7) DVT prophylaxis: Lovenox SQ, SCDs Disposition-bring in on observation overnight for chest pain work-up History of Present Illness Chief Complaint: Chest pain Primary Care Provider: Brandon Arreaga MD This patient is a 59-year-old female with a history of anxiety/depression, fibromyalgia, RLS, hyperlipidemia, GERD, and cervical spine fusion with daily headaches for the last 3 months, who presents to the ER with 2 weeks of intermittent chest pain with heart palpitations and shortness of breath. She reports the chest pain can come on both at rest and with exertion, that it goes away on its own or with rest. She has also been having frequent heartburn which is relieved with Tums and different from her current chest pain. This chest pain feels like heaviness and is located in the left side of her chest with radiation through to the back, associated with shortness of breath, is moderate to severe in nature, also associated with heart palpitations. She is also been feeling lightheaded and an orthostatic nature with going from lying to sitting or sitting to standing but she has not passed out. She denies any recent heavy lifting or muscle soreness. She has never had a stress test before. She is very concerned as there is a history of premature CAD in her family with her brother having an PR with stents placed at age 51. Also, her father had an PR at age 76. She denies any recent fevers/chills, no loss of taste or smell, no coughing, no contact with any known people with COVID-19. She had traveled [facility] in a very remote area last week but otherwise no travel. Allergies Allergy/AdvReac Type Severity Reaction Status Date / Time latex Allergy Severe severe Verified 03/22/20 10:55 red,itchy rash inmouth & down throat (see comments) adhesive Allergy Unknown RASH Verified 03/22/20 10:55 meperidine Allergy Unknown PHSYCHOSIS Verified 03/22/20 10:55 prochlorperazine Allergy Unknown "EYES ROLL Verified 03/22/20 10:55 BACK, STIFF NECK" oxycodone AdvReac Unknown RASH AND Verified 03/22/20 10:55 ITCHING Home Medications Home Medications Medication Instructions Recorded Confirmed Type acetaminophen [Tylenol Arthritis 1,300 mg PO HS 08/12/18 03/22/20 History Pain] bupropion HCl 150 mg tablet,12 hr 150 mg PO BID #180 ea 01/14/20 03/22/20 Rx sustained-release citalopram 20 mg tablet See Rx Instructions PO QAM #135 tab 02/06/20 03/22/20 Rx clindamycin phosphate 1 appln TOP QAM 03/09/20 03/22/20 History ropinirole 0.5 mg PO HS 03/09/20 03/22/20 History Past Med/Surg History Medical History Arthritis (Acute) Cervical pain (neck) Chronic back pain Chronic pain syndrome (Acute) Congenital dislocation of hip, bilateral (Acute) Cystocele, midline (Acute) DDD (degenerative disc disease), cervical (Acute) DDD (degenerative disc disease), lumbar (Acute) Degenerative disc disease Depression Fibromyalgia Hearing deficit Insomnia (Acute) Orthostatic hypotension (Acute) Osteoarthritis Pancreatitis Restless leg syndrome Right-sided headache Sensorineural hearing loss (SNHL) of both ears (Acute) Spinal stenosis Surgical History History of bilateral tubal ligation History of cholecystectomy History of colonoscopy History of dacryocystorhinostomy History of dilatation and curettage x3 History of esophagogastroduodenoscopy (EGD) History of lumbar spinal fusion hardware in place History of tonsillectomy and adenoidectomy History of tooth extraction wisdom teeth History of total abdominal hysterectomy and bilateral salpingo-oophorectomy History of umbilical hernia repair Hx of oral surgery Status post cervical spinal fusion c6-c7; hardware in place--normal ROM Family History Grandmother (Maternal) Family history of diabetes mellitus Father Heart disease Myocardial infarction Brother Myocardial infarction, Onset Age: 51 Coronary heart disease Mother Alzheimer disease Other Family history of colonic polyps Social History Smoking Status: Never smoker Second Hand Exposure: No; Hx Alcohol Use: No Hx Substance Use: No Preferred Language: Norwegian Communication Ability: Effective Visual Impairment: No Limitations Hearing Ability: Normal Plant Attendant Or Assistant Operator Required: No Beliefs That Will Affect Care: None marital status: Current Living Situation: Spouse Feels Safe at Home: Yes Diet Comment: Mediterranean diet reviewed. caffeine: Yes during the past year weight has: remained stable Dental Care, Regularly: Yes Physical Activity Frequency: 1-2 Times per Week Review of Systems Review of Systems: All systems reviewed & are unremarkable except as noted in HPI & below No sore throat, no cough, no loss of sense of taste or smell No fevers or chills No nausea or vomiting or diarrhea, no abdominal pain, no constipation No dysuria or urinary urgency or frequency No joint pains No rashes Physical Exam Constitutional: WD/WN, vitals as above Eyes: PERRL, conjunctivae normal, anicteric sclerae ENMT: external ear and nose normal, oropharynx normal Neck: trachea midline, no thyromegaly Respiratory: normal respiratory effort, lungs clear to auscultation Cardiovascular: RRR, no murmur, no edema No tenderness to palpation over costochondral junction Chest (Breasts): Chest: normal inspection of chest Gastrointestinal (Abdomen): normal bowel sounds, soft, nontender, no hepatosplenomegaly Musculoskeletal: Extremities: extremities normal to inspection; no cyanosis and no clubbing Skin: no rashes, warm and dry Neurologic: moves all extremities and awake; no focal motor deficits Psychiatric: A+Ox3, euthymic affect Lymphatic: no lymphedema Results & Data Results & Data ([facility]) Vital Signs (Past 12 Hours) Vital Signs Temp Pulse Resp BP Pulse Ox 03/22/20 15:28 87 16 137/84 100 03/22/20 14:15 29 H 98 03/22/20 14:06 34 H 03/22/20 13:45 25 H 96 03/22/20 13:30 31 H 128/81 98 03/22/20 13:15 78 13 98 03/22/20 13:00 86 14 149/88 H 99 03/22/20 12:56 37.2 C 89 23 157/87 H 100 03/22/20 12:55 100 03/22/20 12:53 83 15 100 03/22/20 12:45 84 7 L 157/87 H 100 Laboratory Results 03/22/20 03/22/20 03/22/20 Range/Units 12:13 12:13 12:13 WBC 6.64 (4.8-10.8) K/uL RBC 4.49 (4.2-5.4) M/uL Hgb 13.1 (12.0-16.0) g/dL Hct 40.9 (37-47) % MCV 91.1 (80-100) fL MCH 29.2 (25-34) pg MCHC 32.0 (32-36) g/dL RDW Std Deviation 42.2 (36.4-46.3) fL RDW Coeff of Madelaine 12.6 (11.5-14.5) % Plt Count 342 (130-400) K/uL MPV 9.0 (7.4-10.4) fL Immature Gran % (Auto) 0.3 % Neut % (Auto) 66.8 % Lymph % (Auto) 24.7 % [place] % (Auto) 6.8 % Eos % (Auto) 1.1 % Baso % (Auto) 0.3 % Neut # (Auto) 4.44 (1.4-6.5) K/uL Lymph # (Auto) 1.64 (1.2-3.4) K/uL [place] # (Auto) 0.45 (0.11-0.59) K/uL Eos # (Auto) 0.07 (0-0.5) K/uL Baso # (Auto) 0.02 (0-0.2) K/uL Immature Gran # (Auto) 0.02 (0.00-0.02) K/uL PT 10.9 (9.0-12.0) Seconds INR 1.0 (0.9-1.1) APTT 30.1 (21.0-31.0) Seconds PTT Ratio 1.1 Sodium 140 (136-145) mmol/L Potassium 3.9 (3.5-5.1) mmol/L Chloride 106 (98-107) mmol/L Carbon Dioxide 25 (21-32) mmol/L Anion Gap 8.0 (3-11) BUN 8 (7-18) mg/dl Creatinine 0.85 (0.6-1.2) mg/dl Est Cr Clr Drug Dosing 78.7 ml/min Est GFR ( Amer) 86.3 Est GFR (Non-Af Amer) 74.5 BUN/Creatinine Ratio 9.0 L (10-20) Glucose 93 (70-99) mg/dl Calcium 8.9 (8.5-10.1) mg/dl Total Bilirubin 0.3 (0.2-1) mg/dl AST 12 L (15-37) U/L ALT 15 (12-78) U/L Alkaline Phosphatase 100 (45-117) U/L Troponin I < 0.015 (0-0.045) ng/ml Total Protein 7.2 (6.4-8.2) gm/dl Albumin 3.7 (3.4-5.0) gm/dl Globulin 3.5 (2.5-4.0) gm/dl Albumin/Globulin Ratio 1.1 (0.9-2) Diagnostic Findings Chest x-ray image personally reviewed by me and agree with the following report: XR chest 1V portable CLINICAL HISTORY: Chest Pain pain COMPARISON STUDY: 03/09/2020 FINDINGS: The bones soft tissues and hemidiaphragms are normal. The cardiomediastinal silhouette is normal. The lungs are clear. The pulmonary vasculature is normal. IMPRESSION: Negative chest. ECG Additional Comments: ECG with normal sinus rhythm, rate 82, no evidence of ischemia Code Status & VTE Plan Code Status DNR/DNI VTE Prophylaxis Plan VTE Prophylaxis will be ordered: Yes PG Care Time/CCT Total # of Minutes Spent Total Time Spent with Patient: Total time spent is greater than 50% in coordination of care (as documented) at patient's floor/unit and/or counseling patient: Coding Level of Care Code 01509 OBS Care - Level 3 Diagnoses Atypical chest pain R07.89 Headache R51 Headache chronicity pattern: acute headache Headache type: unspecified Intractability: not intractable Depression F32.9 Depression Type: reactive depression Restless legs syndrome G25.81 Orthostatic hypotension I95.1 Hyperlipidemia E78.5 Hyperlipidemia type: unspecified DVT prophylaxis Z29.9 (1) Headache Headache chronicity pattern: acute headache Headache type: unspecified Intractability: not intractable Qualified Code(s): R51 - Headache (2) Depression Depression Type: reactive depression Qualified Code(s): F32.9 - Major depressive disorder, single episode, unspecified (3) Hyperlipidemia Hyperlipidemia type: unspecified Qualified Code(s): E78.5 - Hyperlipidemia, unspecified
[2020-03-22] MEDS ORDERED: SODIUM CHLORIDE 0.9% 1000ML 1,000 ML IV SCH (18:48)
[2020-03-22] MEDS ORDERED: ACETAMINOPHEN 325 MG TAB PO PRN (18:48)
[2020-03-22] MEDS: ASPIRIN 81 MG ECTAB PO SCH (19:07)
[2020-03-22] MEDS ORDERED: ENOXAPARIN INJ 40 MG/0.4 ML SYR SQ SCH (20:00)
[2020-03-22] MEDS: NITROGLYCERIN SL 0.4 MG/TAB TAB SL PRN ×2 (20:35→20:45)
[2020-03-22] MEDS ORDERED: ROPINIROLE HCL 0.25 MG TABLET PO SCH (21:00)
[2020-03-22] MEDS ORDERED: ACETAMINOPHEN 500 MG TAB PO SCH (21:00)
[2020-03-22] MEDS ORDERED: MoRPHine SULFATE 2 MG/ML CARP IV STA (21:04)
[2020-03-22] MEDS: BuPROPion SR 150 MG TABCR PO SCH (21:08)
[2020-03-23] MEDS: BuPROPion SR 150 MG TABCR PO SCH (07:46)
[2020-03-23 08:23] LABS: Basophils # (auto) 0.02 K/uL (0-0.2); Basophils % (auto) 0.4 %; Eosinophils # (auto) 0.06 K/uL (0-0.5); Eosinophils % (auto) 1.2 %; Hematocrit (blood only) 37.9 % (37-47); Hemoglobin 12.6 g/dL (12.0-16.0); Lymphocytes % (auto) 25.9 %; Mean Corpuscular Hemoglobin 30.1 pg (25-34); Mean Corpuscular Hgb Conc 33.2 g/dL (32-36); Mean Corpuscular Volume 90.5 fL (80-100); Mean Platelet Volume 8.8 fL (7.4-10.4); Monocytes # (auto) 0.29 K/uL (0.11-0.59); Monocytes % (auto) 5.8 %; Neutrophils # (auto) 3.35 K/uL (1.4-6.5); Neutrophils % (auto) 66.7 %; Platelet Count 242 K/uL (130-400); RDW Coefficient of Variation 12.5 % (11.5-14.5); RDW Standard Deviation 41.4 fL (36.4-46.3); Red Blood Count 4.19 M/uL (4.2-5.4); White Blood Count 5.02 K/uL (4.8-10.8)
[2020-03-23] MEDS: ASPIRIN 81 MG ECTAB PO SCH (08:37)
[2020-03-23 08:48] LABS: Albumin Level 3.6 gm/dl (3.4-5.0); Bilirubin Direct 0.1 mg/dl (0-0.2); Calcium 8.7 mg/dl (8.5-10.1); Creatinine Clr Calc Pharmacy 83.7 ml/min; Est GFR (African American) 94.3; Est GFR (Non-African American) 81.4; Potassium 4.3 mmol/L (3.5-5.1)
[2020-03-23 08:51] LABS: Albumin Globulin Ratio 1.2 (0.9-2); Bilirubin,Total 0.5 mg/dl (0.2-1); Total Protein 6.6 gm/dl (6.4-8.2)
[2020-03-23] MEDS ORDERED: CITALOPRAM 20 MG TAB PO SCH (09:00)
[2020-03-23] MEDS ORDERED: PERFLUTREN LIPID MICROSPHERE (DEFINITY) IV ONE (10:05)
--- NOTE | 2020-03-23 15:41 | Discharge Summary ---
Date of Service March 23, 2020 Admission HPI Per Admitting Provider This patient is a 59-year-old female with a history of anxiety/depression, fibromyalgia, RLS, hyperlipidemia, GERD, and cervical spine fusion with daily headaches for the last 3 months, who presents to the ER with 2 weeks of intermittent chest pain with heart palpitations and shortness of breath. She reports the chest pain can come on both at rest and with exertion, that it goes away on its own or with rest. She has also been having frequent heartburn which is relieved with Tums and different from her current chest pain. This chest pain feels like heaviness and is located in the left side of her chest with rad iation through to the back, associated with shortness of breath, is moderate to severe in nature, also associated with heart palpitations. She is also been feeling lightheaded and an orthostatic nature with going from lying to sitting or sitting to standing but she has not passed out. She denies any recent heavy lifting or muscle soreness. She has never had a stress test before. She is very concerned as there is a history of premature CAD in her family with her brother having an SD with stents placed at age 51. Also, her father had an SD at age 76. She denies any recent fevers/chills, no loss of taste or smell, no coughing, no contact with any known people with COVID-19. She had traveled [facility] in a very remote area last week but otherwise no travel. Principal Diagnosis chest pain Discharge Exam The patient appeared well Vital signs as documented. Lungs are clear to auscultation and appear unlabored Cardiac exam, Rhythm is regular.. No murmurs, rubs or gallops. Abdominal exam reveals normal bowel sounds, soft non tender, no masses Extremities are nonedematous and both pedal pulses are normal. Neurologic exam is alert and oriented, no focal loss of strength or sensation Skin is without bruises or rashes Psychologically is without concerns for anxiety or depression Discharge Data Allergies Allergy/AdvReac Type Severity Reaction Status Date / Time latex Allergy Severe severe Verified 03/22/20 10:55 red,itchy rash inmouth & down throat (see comments) adhesive Allergy Unknown RASH Verified 03/22/20 10:55 meperidine Allergy Unknown PHSYCHOSIS Verified 03/22/20 10:55 prochlorperazine Allergy Unknown "EYES ROLL Verified 03/22/20 10:55 BACK, STIFF NECK" oxycodone AdvReac Unknown RASH AND Verified 03/22/20 10:55 ITCHING Consultations 03/22/20 14:43 ED Decision to Admit Stat Hospital Course (1) Atypical chest pain: Chest pain atypical in nature, but with strong family history of CAD. Does not seem musculoskeletal in nature, but is possible. Could also be GI rela hillary. Chest x-ray is normal. D-dimer was negative when she had the exact same symptoms began 2 weeks ago and I do not suspect PE or DVT. Patient had 1 recurrence of symptoms shortly after she ate an evening meal on 03/22. No recurrence since. Patient underwent stress echocardiogram without evidence of recurrence of symptoms. Patient has no abnormal rhythms determined on heart monitor. Had negative troponin trend. Patient is discharged prior to the final reading of her stress test understanding that it is not completed. Both her and her voiced understanding of this and I will call them tomorrow with the final results. She however did not wish to wait till the end of the day to have that test formally read. Subsequently were going to begin omeprazole and the chance this could be a GI originated chest discomfort. (2) Headache: Chronic daily headache for the last 3 months Does have a history of cervical spine issues -Recommend PCP follow-up as an outpatient Tylenol as needed (3) Depression: Stable -Continue home citalopram and bupropion (4) Restless legs syndrome: Stable -Continue home ropinirole (5) Orthostatic hypotension: Resolved (6) Hyperlipidemia: Listed as a diagnosis in the chart, but she is not on medication for this -Check fasting lipid panel in the morning Start statin if indicated Total Time Total Time Spent Total Time Spent (In Minutes): It required greater than 30 minutes to prepare this patient for discharge, this included 2 visits during the day multiple discussions with cardiology to try to get the results of her test test completed before discharge Discharge Plan Discharge Items Patient Disposition: Home - Self-Care Reason For Visit: CHEST PAIN, PALPITATIONS Discharge Diagnosis: chest pain -resolved Condition on Discharge: Good Activity: Per Instructions section Activity Comment: gradually increase your activity Non-emergency contact: Primary Care Provider Call non-emergency contact if: you have any medication questions Follow-up/Referrals: Brandon Arreaga MD [Primary Care Provider] - Diet: Regular Addtl Attending Provider Instructions: please see your primary care start your new medicine tonight always return if worse Pending Studies at Discharge: Yes (the final read of your stress test is not complete you will be called ) Stand-Alone Forms: My [facility], Smoking Cessation Medications and DC Order Prescriptions: New omeprazole 40 mg capsule,delayed release(DR/EC) 40 mg PO DAILY 28 Days Qty: 28 RF: 0 Continued bupropion HCl 150 mg tablet sustained-release 12 hr 150 mg PO BID Qty: 180 RF: 3 citalopram 20 mg tablet See Rx Instructions PO QAM Qty: 135 RF: 3 acetaminophen [Tylenol Arthritis Pain] 650 mg Tablet Extended Release 1,300 mg PO HS RF: 0 ropinirole 0.25 mg tablet 0.5 mg PO HS RF: 0 clindamycin phosphate 1 % solution 1 appln TOP QAM RF: 0 Discharge Orders: Discharge Order (Routine); Ordered 03/23/20 Ordered By: Marcelo Varner Admission Data Admit Date/Time: 03/22/20 16:47 Attending Provider: Marcelo Varner Admit Provider: Nina Do Primary Care Provider: Brandon Arreaga Other Providers: Nina Do Coding Level of Care Code D/C Day Management >30 mins Diagnoses Atypical chest pain R07.89 Headache R51 Headache chronicity pattern: acute headache Headache type: unspecified Intractability: not intractable Depression F32.9 Depression Type: reactive depression Restless legs syndrome G25.81 Orthostatic hypotension I95.1 Hyperlipidemia E78.5 Hyperlipidemia type: unspecified
--- NOTE | 2020-03-23 18:37 | XCELERA ---
[id number] \\[id number]___[id number]
--- NOTE | 2020-03-23 18:56 | XCELERA ---
[id number] \\[id number]_[id number]}___[id number]
--- NOTE | 2020-03-24 16:44 | Electrocardiogram Report ---
Test Reason : Blood Pressure : / mmHG Vent. Rate : 082 BPM Atrial Rate : 082 BPM P-R Int : 112 ms QRS Dur : 084 ms QT Int : 386 ms P-R-T Axes : 045 038 051 degrees QTc Int : 450 ms Normal sinus rhythm Normal ECG When compared with ECG of 09-MAR-2020 11:59, No significant change was found Confirmed by Ernesto Hamlin ([id number]) on 03/24/2020 4:44:19 PM Referred By: REFERRED SELF Confirmed By:Ernesto Hamlin
--- NOTE | 2020-03-25 08:15 | Electrocardiogram Report ---
Test Reason : Blood Pressure : / mmHG Vent. Rate : 097 BPM Atrial Rate : 097 BPM P-R Int : 086 ms QRS Dur : 084 ms QT Int : 358 ms P-R-T Axes : 054 054 045 degrees QTc Int : 454 ms Poor data quality, interpretation may be adversely affected Sinus rhythm with short [place] Otherwise normal ECG When compared with ECG of 22-MAR-2020 13:09, (unconfirmed) No significant change was found Confirmed by Ernesto Hamlin ([id number]) on 03/25/2020 8:15:00 AM Referred By: REFERRED SELF Confirmed By:Ernesto Hamlin
== END 2020-03-23 15:55 | disposition home or self-care (01) ==
LOC: ED 12:38 → 2W 12:38 → SUATTDRO 16:47 → 2W 18:30